=== PATIENT | female | born 1965 | race Caucasian/White ===

== ENCOUNTER 2022-01-14 13:41 | Emergency (ER) | payer OTHER, SELFPAY ==
--- NOTE | ~2022-01-14 | CT_ITS ---
EXAMINATION: CT HEAD WITHOUT CONTRAST CLINICAL INFORMATION: Altered mental status COMPARISON: None TECHNIQUE: Contiguous axial imaging was performed from the skull base to vertex without intravenous administration of contrast. This CT examination was performed using dose optimization techniques as appropriate, variously including the following: *Automated exposure control *Adjustment of mA and/or kV according to patient size (this includes techniques or standardized protocols for targeted exams where dose is matched to indication/reason for exam; i.e. extremities or head) *Use of iterative reconstruction technique DLP: 558 mGy-cm FINDINGS: There is no evidence of acute intracranial hemorrhage or territorial infarction. No abnormal mass effect or midline shift is seen. Fish to white matter differentiation is well preserved. No extra-axial fluid collections are identified. The ventricles are normal in size. There is no abnormal attenuation within the brain parenchyma. The osseous structures and soft tissues are normal. The mastoid air cells and visualized portions of the paranasal sinuses are well aerated. CT/CT head/brain wo con IMPRESSION: No acute intracranial pathology.
[2022-01-14 13:49] VITALS: BP 134/78; PULSE 86; RESP 17; TEMP 36.7; O2SAT 100; BMI 17.6
--- NOTE | 2022-01-14 13:55 | ECG_ITS ---
Test Reason : AMS Blood Pressure : / mmHG Vent. Rate : 072 BPM Atrial Rate : 072 BPM P-R Int : 124 ms QRS Dur : 100 ms QT Int : 400 ms P-R-T Axes : 076 046 053 degrees QTc Int : 438 ms Normal sinus rhythm Normal ECG No previous ECGs available Referred By: Purnima Craig Electronically Signed By:STEPHIE BENNETT MD
[2022-01-14 14:03] LABS: Glucose, Whole Blood 86 mg/dL (60-115)
--- NOTE | 2022-01-14 14:06 | ED_ITS ---
HPI - Altered Mental Status General Chief Complaint: Altered Mental Status Stated Complaint: confused unable to remember Time Seen by Provider: 01/14/22 13:49 Source: patient and family Mode of arrival: ambulatory Limitations: no limitations History of Present Illness HPI narrative: Patient comes emergency room for altered mental status. According to the patient's , the patient went to the gym, seems that everything went fine until she returned hand. According to the family, the patient kept asking why she was wearing gym clothes, patient was confused to date. No focal deficits. Patient speaks in full sentences, she knows where she is, clear speech. When patient is asked what is the last thing she remembers, patient says ?I do not know . When she is asked what she rembers from yesterday, she says i don't know . Patient is ask what is the last thing she remembers, patient keeps answering ?I do not know? otherwise, patient is able to answer all other questions, recognizes her family. Denies any pain anywhere Related Data Allergies Allergy/AdvReac Type Severity Reaction Status Date / Time Penicillins Allergy Intermediate Rash Verified 01/14/22 13:55 salicylic acid Allergy Intermediate Rash Verified 01/14/22 13:55 [From P and S (salicylic acid)] Review of Systems Review of Systems: Constitutional : No Weight loss, No Fever, No Chills, No Night Sweats, No Fatigue, No Malaise ENT/Mouth : No Hearing loss, No Ear Pain, No Nasal Congestion, No Sinus Pain, No Hoarseness, No sore throat, No Rhinorrhea, No Swallowing Difficulty Eyes: No Eye Pain, No Swelling, No Redness, No Foreign Body, No Discharge, No Vision Changes Cardiovascular : No Chest Pain, No SOB, No Dyspnea on Exertion, No Orthopnea, No Edema, No Palpitations Respiratory : No Cough, No Sputum, No Wheezing, No Smoke Exposure, No Dyspnea Gastrointestinal : No Nausea, No Vomiting, No Diarrhea, No Constipation, No abdominal Pain, No Hematochezia, No Melena Genitourinary : no irregular bleeding, No Dysuria, No Urinary Frequency, No Hematuria, No Urinary Incontinence, No Urgency, No Flank Pain, No Urinary Flow Changes, No Hesitancy Musculoskeletal : No joint pain, No Myalgias, No Joint Swelling Skin : No Skin Lesions, No rash Neuro : No Weakness, No Numbness, No Paresthesias, No Loss of Consciousness, No Dizziness, No Headache Psych : Patient denies history of depression or anxiety, states that she takes sertraline for TMJ Heme/Lymph: No Bruising, No Bleeding,No Lymphadenopathy Endocrine : No Polyuria, No Polydipsia, No Temperature Intolerance [facility] Past Medical History Medical History (Updated 01/14/22 @ 16:11 by Purnima Craig MD) Hypertension TMJ arthralgia Social History Social History Advance Directives: No Advance Directives Information Provided: Yes Physical Exam ED Vital Signs: Vital Signs - 24 hr 01/14/22 13:49 01/14/22 15:23 Temperature 98.1 F 98.3 F Pulse Rate 86 94 Respiratory Rate 17 14 Blood Pressure 134/78 120/68 Pulse Oximetry 100 100 BMI result Body Mass Index 17.6 Const Other: Appearance: Alert. Oriented X3. No acute distress. Eyes: Pupils equal, round and reactive to light. ENT: Pharynx normal. Neck: Normal inspection. Neck supple. No lymph nodes noted. No crepitus CVS: Normal heart rate and rhythm. Pulses normal. Normal S1 and S2 Respiratory: No respiratory distress. Breath sounds normal. No Wheezing. No rales Abdomen: Soft and nontender. No rigidity. No distention. Skin: Skin warm and dry. Normal skin color. Normal skin turgor. Extremities: No lower extremity edema. No Lacerations. No Rash Neuro: Oriented X 3. No motor deficit. No sensory deficit. Moving all extermities. No slurred speech. Cranial nerves 2-12 grossly intact Psych: Alert, oriented, able to have a normal conversation. However, when patient is asked what she remembers from today, or yesterday, the day before, or ever, her only answer is ?I do not know NIH Stroke Scale Level of Consciousness: Alert Level of Consciousness Questions: Answers both questions correctly Level of Consciousness Commands: Performs both tasks correctly Best Gaze: Normal Visual: No visual loss Facial Palsy: Normal Motor Arm (Right): No drift Motor Arm (Left): No drift Motor Leg (Right): No drift Motor Leg (Left): No drift Limb Ataxia: Absent Sensory: Normal Best Language: No aphasia Dysarthia: Normal Extinction and Inattention: No abnormality Score: 0 Course Course Course Narrative: I discussed the labs and imaging with the patient, her and her son who are at bedside. At this time, it is possible that patient may have amnesia. Patient tested positive for benzodiazepines. Patient only takes amitriptyline and sertraline per her family. I discussed the patient's medications with pharmacy, it is possible that sertraline, can make a urine toxicology turn a falsely positive for benzos [facility] consult pending Physician observation started at 16:12 Sign-out given to Dr. Juarez [facility] - Altered Mental Status Lab Data Result diagrams: 01/14/22 14:17 01/14/22 14:17 Labs: Lab Results 01/14/22 01/14/22 01/14/22 Range/Units 14:00 14:17 14:17 WBC 7.4 (4.8-10.8) X10*3/uL RBC 4.61 (4.20-5.50) X10*6/uL Hgb 14.1 (12.0-16.0) g/dl Hct 43.0 (37.0-47.0) % MCV 93.3 (80.0-98.0) fL MCH 30.6 (27.0-33.0) pg MCHC 32.8 (31.0-35.0) g/dl RDW 13.5 (11.0-16.0) % Plt Count 187 (160-400) X10*3/uL MPV 9.7 (9.4-12.3) fL Immature Gran % (Auto) 0.3 (0.0-0.4) % Neut % (Auto) 75.5 H (45-73) % Lymph % (Auto) 17.6 L (20-40) % Barron % (Auto) 5.2 (2-11) % Eos % (Auto) 0.9 (0-4) % Baso % (Auto) 0.5 (0-2) % Lymph # (Auto) 1.3 (1.2-4.9) X10*3/uL Barron # (Auto) 0.4 (0.1-1.2) X10*3/uL Eos # (Auto) 0.1 (0.0-0.4) X10*3/uL Baso # (Auto) 0.0 (0.0-0.2) X10*3/uL Abs Immat Gran (auto) 0.02 (0.00-0.03) X10*3/uL Absolute Neuts (auto) 5.6 (2.0-8.3) x10*3/uL Absolute Nucleated RBC 0.000 (0.0-0.012) X10*3/uL Nucleated RBC % (auto) 0.0 (0.0-0.2) /100WBC Sodium 138 (135-145) mmol/L Potassium 3.8 (3.3-5.1) mmol/L Chloride 103 (96-108) mmol/L Carbon Dioxide 26 (22-29) mmol/L Anion Gap 13 (12-20) BUN 18 H (9-16) mg/dL Creatinine 0.77 (0.5-1.4) mg/dL Estim Creat Clear Calc 63.5 Estimated GFR > 60 POC Glucose 86 (60-115) mg/dL Random Glucose 94 (60-115) mg/dL Lactic Acid (0.5-2.0) mmol/L Calcium 10.0 (8.4-10.2) mg/dL Magnesium 2.4 (1.6-2.6) mg/dL Total Bilirubin 0.5 (0.0-1.0) mg/dL Direct Bilirubin 0.2 (0.0-0.5) mg/dL AST 29 (5-31) U/L ALT 14 (0-31) U/L Alkaline Phosphatase 57 (39-117) U/L Ammonia (13-55) umol/L Total Creatine Kinase 138 (26-140) U/L Troponin I High Sens (<3.5-17.0) ng/L Total Protein 8.0 (6.5-8.0) g/dL Albumin 4.8 (3.5-5.0) g/dL TSH (0.32-4.0) uIU/mL Urine Color Urine Appearance Urine pH (5.0-8.0) Ur Specific [place] (1.005-1.025) Urine Protein (NEG-TRACE) MG/DL Urine Glucose (UA) (NEG) MG/DL Urine Ketones (NEG) MG/DL Urine Blood (NEG) Urine Nitrite (NEG) Ur Leukocyte Esterase (NEG) Urine Opiates Screen (Not Detect) Urine Fentanyl Screen (Not Detect) Ur Barbiturates Screen (Not Detect) Ur Phencyclidine Scrn (Not Detect) Ur Amphetamines Screen (Not Detect) U Benzodiazepines Scrn (Not Detect) Urine Cocaine Screen (Not Detect) U Marijuana (THC) Screen (Not Detect) 01/14/22 01/14/22 01/14/22 Range/Units 14:17 14:17 14:17 WBC (4.8-10.8) X10*3/uL RBC (4.20-5.50) X10*6/uL Hgb (12.0-16.0) g/dl Hct (37.0-47.0) % MCV (80.0-98.0) fL MCH (27.0-33.0) pg MCHC (31.0-35.0) g/dl RDW (11.0-16.0) % Plt Count (160-400) X10*3/uL MPV (9.4-12.3) fL Immature Gran % (Auto) (0.0-0.4) % Neut % (Auto) (45-73) % Lymph % (Auto) (20-40) % Barron % (Auto) (2-11) % Eos % (Auto) (0-4) % Baso % (Auto) (0-2) % Lymph # (Auto) (1.2-4.9) X10*3/uL Barron # (Auto) (0.1-1.2) X10*3/uL Eos # (Auto) (0.0-0.4) X10*3/uL Baso # (Auto) (0.0-0.2) X10*3/uL Abs Immat Gran (auto) (0.00-0.03) X10*3/uL Absolute Neuts (auto) (2.0-8.3) x10*3/uL Absolute Nucleated RBC (0.0-0.012) X10*3/uL Nucleated RBC % (auto) (0.0-0.2) /100WBC Sodium (135-145) mmol/L Potassium (3.3-5.1) mmol/L Chloride (96-108) mmol/L Carbon Dioxide (22-29) mmol/L Anion Gap (12-20) BUN (9-16) mg/dL Creatinine (0.5-1.4) mg/dL Estim Creat Clear Calc Estimated GFR POC Glucose (60-115) mg/dL Random Glucose (60-115) mg/dL Lactic Acid 1.0 (0.5-2.0) mmol/L Calcium (8.4-10.2) mg/dL Magnesium (1.6-2.6) mg/dL Total Bilirubin (0.0-1.0) mg/dL Direct Bilirubin (0.0-0.5) mg/dL AST (5-31) U/L ALT (0-31) U/L Alkaline Phosphatase (39-117) U/L Ammonia 24 (13-55) umol/L Total Creatine Kinase (26-140) U/L Troponin I High Sens < 3.5 (<3.5-17.0) ng/L Total Protein (6.5-8.0) g/dL Albumin (3.5-5.0) g/dL TSH (0.32-4.0) uIU/mL Urine Color Urine Appearance Urine pH (5.0-8.0) Ur Specific [place] (1.005-1.025) Urine Protein (NEG-TRACE) MG/DL Urine Glucose (UA) (NEG) MG/DL Urine Ketones (NEG) MG/DL Urine Blood (NEG) Urine Nitrite (NEG) Ur Leukocyte Esterase (NEG) Urine Opiates Screen (Not Detect) Urine Fentanyl Screen (Not Detect) Ur Barbiturates Screen (Not Detect) Ur Phencyclidine Scrn (Not Detect) Ur Amphetamines Screen (Not Detect) U Benzodiazepines Scrn (Not Detect) Urine Cocaine Screen (Not Detect) U Marijuana (THC) Screen (Not Detect) 01/14/22 01/14/22 01/14/22 Range/Units 14:17 15:24 15:24 WBC (4.8-10.8) X10*3/uL RBC (4.20-5.50) X10*6/uL Hgb (12.0-16.0) g/dl Hct (37.0-47.0) % MCV (80.0-98.0) fL MCH (27.0-33.0) pg MCHC (31.0-35.0) g/dl RDW (11.0-16.0) % Plt Count (160-400) X10*3/uL MPV (9.4-12.3) fL Immature Gran % (Auto) (0.0-0.4) % Neut % (Auto) (45-73) % Lymph % (Auto) (20-40) % Barron % (Auto) (2-11) % Eos % (Auto) (0-4) % Baso % (Auto) (0-2) % Lymph # (Auto) (1.2-4.9) X10*3/uL Barron # (Auto) (0.1-1.2) X10*3/uL Eos # (Auto) (0.0-0.4) X10*3/uL Baso # (Auto) (0.0-0.2) X10*3/uL Abs Immat Gran (auto) (0.00-0.03) X10*3/uL Absolute Neuts (auto) (2.0-8.3) x10*3/uL Absolute Nucleated RBC (0.0-0.012) X10*3/uL Nucleated RBC % (auto) (0.0-0.2) /100WBC Sodium (135-145) mmol/L Potassium (3.3-5.1) mmol/L Chloride (96-108) mmol/L Carbon Dioxide (22-29) mmol/L Anion Gap (12-20) BUN (9-16) mg/dL Creatinine (0.5-1.4) mg/dL Estim Creat Clear Calc Estimated GFR POC Glucose (60-115) mg/dL Random Glucose (60-115) mg/dL Lactic Acid (0.5-2.0) mmol/L Calcium (8.4-10.2) mg/dL Magnesium (1.6-2.6) mg/dL Total Bilirubin (0.0-1.0) mg/dL Direct Bilirubin (0.0-0.5) mg/dL AST (5-31) U/L ALT (0-31) U/L Alkaline Phosphatase (39-117) U/L Ammonia (13-55) umol/L Total Creatine Kinase (26-140) U/L Troponin I High Sens (<3.5-17.0) ng/L Total Protein (6.5-8.0) g/dL Albumin (3.5-5.0) g/dL TSH 0.73 (0.32-4.0) uIU/mL Urine Color YELLOW Urine Appearance CLEAR Urine pH 7.5 (5.0-8.0) Ur Specific [place] 1.020 (1.005-1.025) Urine Protein NEG (NEG-TRACE) MG/DL Urine Glucose (UA) NEG (NEG) MG/DL Urine Ketones 15 (NEG) MG/DL Urine Blood NEG (NEG) Urine Nitrite NEG (NEG) Ur Leukocyte Esterase NEG (NEG) Urine Opiates Screen Not Detected (Not Detect) Urine Fentanyl Screen Not Detected (Not Detect) Ur Barbiturates Screen Not Detected (Not Detect) Ur Phencyclidine Scrn Not Detected (Not Detect) Ur Amphetamines Screen Not Detected (Not Detect) U Benzodiazepines Scrn POSITIVE H (Not Detect) Urine Cocaine Screen Not Detected (Not Detect) U Marijuana (THC) Screen Not Detected (Not Detect) Discharge Plan Discharge Clinical Impression: Amnesia Patient Disposition: Still a Patient
[2022-01-14 14:24] LABS: MANUAL DIFF FLAG NO
[2022-01-14 14:37] LABS: Basophils Percent Auto 0.5 % (0-2); Eosinophils Absolute Auto 0.1 X10*3/uL (0.0-0.4); Eosinophils Percent Auto 0.9 % (0-4); Hemoglobin 14.1 g/dl (12.0-16.0); Imm Gran Abs Auto 0.02 X10*3/uL (0.00-0.03); Imm Gran Pct Auto 0.3 % (0.0-0.4); Lymphocytes Absolute Auto 1.3 X10*3/uL (1.2-4.9); Lymphocytes Percent Auto 17.6 % (20-40); Mean Corpuscular HGB Conc 32.8 g/dl (31.0-35.0); Mean Corpuscular Hemoglobin 30.6 pg (27.0-33.0); Mean Corpuscular Volume 93.3 fL (80.0-98.0); Mean Platelet Volume 9.7 fL (9.4-12.3); Monocytes Absolute Auto 0.4 X10*3/uL (0.1-1.2); Monocytes Percent Auto 5.2 % (2-11); Neutrophils Absolute Auto 5.6 x10*3/uL (2.0-8.3); Neutrophils Percent Auto 75.5 % (45-73); Platelet Count 187 X10*3/uL (160-400); Red Blood Count 4.61 X10*6/uL (4.20-5.50); Red Cell Distribution Width 13.5 % (11.0-16.0); White Blood Count 7.4 X10*3/uL (4.8-10.8)
[2022-01-14 14:42] LABS: Alanine Aminotransferase 14 U/L (0-31); Albumin Level 4.8 g/dL (3.5-5.0); Alkaline Phosphatase 57 U/L (39-117); Anion Gap 13 (12-20); Aspartate Amino Transferase 29 U/L (5-31); Bilirubin Direct 0.2 mg/dL (0.0-0.5); Bilirubin Total 0.5 mg/dL (0.0-1.0); Blood Urea Nitrogen 18 mg/dL (9-16); Carbon Dioxide 26 mmol/L (22-29); Chloride 103 mmol/L (96-108); Creatinine Clr Calc Pharmacy 63.5; Estimated Glomerular Filt Rate > 60; Glucose Random 94 mg/dL (60-115); Magnesium 2.4 mg/dL (1.6-2.6); Potassium 3.8 mmol/L (3.3-5.1); Sodium 138 mmol/L (135-145)
[2022-01-14 14:44] LABS: Troponin-I High Sensitivity < 3.5 ng/L (<3.5-17.0)
[2022-01-14 14:45] LABS: Ammonia 24 umol/L (13-55)
[2022-01-14 14:59] LABS: TSH reflex Free T4 0.73 uIU/mL (0.32-4.0)
[2022-01-14 15:23] VITALS: BP 120/68; PULSE 94; RESP 14; TEMP 36.8; O2SAT 100
[2022-01-14 15:29] LABS: Appearance Urine CLEAR; Color Urine YELLOW; Glucose Urine UA NEG (NEG); Leukocyte Esterase Urine NEG (NEG); Nitrite Urine NEG (NEG); PH 7.5 (5.0-8.0); Urine Blood NEG (NEG); Urine Ketones 15 MG/DL (NEG); Urine Protein NEG (NEG-TRACE)
[2022-01-14 15:44] LABS: Amphetamine Screen Urine Not Detected (Not Detect); Barbiturates, Urine Not Detected (Not Detect); Benzodiazepines Screen Urine POSITIVE (Not Detect); Cannabinoid Screen Urine Not Detected (Not Detect); Cocaine Screen Urine Not Detected (Not Detect); Fentanyl, urine Not Detected (Not Detect); Opiate Screen Urine Not Detected (Not Detect); Phencyclidine Screen Urine Not Detected (Not Detect)
[2022-01-14 18:27] LABS: Ethanol < 10 mg/dL
--- NOTE | 2022-01-14 19:57 | MHC.CARE ---
CARE team support requested by ED staff for a 56 year old , white, Cymro speaking, cisgender female who was brought to the ED by her and son for assessment of new onset of short term memory loss/amnesia-like symptoms that started this morning. Pt's son reported that she had been acting oddly after returning home from the gym. She was asking why she was wearing her gym clothes and wasn't able to remember going to the gym, she was starting tasks and forgetting that she had done so, checking on the car repeatedly without having any recollection of doing so a few minutes before, and wasn't able to remember any specific details of things from the night before through to this afternoon after arriving to the ED. On arrival to the ED the pt was alert and oriented to person and place but not situation, repeatedly asking why she was brought to the hospital, and responding with I don't know to questions regarding tasks and activities that she had done in the past 12 hours. Her medical labs were unremarkable and her toxicology screen was positive for benzodiazepines, which she has no recent or active prescriptions for. CARE team met with pt to assess her mental status and gather information re: her past and current psychiatric symptoms, substance use, trauma, and family history. Pt was seen in room 4 of the main ED. She was alert in oriented in all spheres and appeared to be more cognizant of why she was in the hospital without being prompted with the information. She was dressed in hospital attire, hygiene and grooming were within normal limits, speech was slow with even tone and rhythm, and eye contact was appropriate. Her mood was dysthymic with congruent affect and her overall demeanor was calm and subdued. She presented with reasonably expected anxiety and concern for what has happened to her however she did not appear to be outwardly distressed. Her thought process was linear and she did not appear to be responding to internal stimuli nor did she demonstrate any signs or symptoms of acute psychosis. She endorsed a history of anxiety and depression symptoms and shared that she started working with a therapist and psychiatrist through telehealth a year ago (her reported that it was closer to the beginning of the covid-19 pandemic in mid-2019) and was started on the medications sertraline and amitriptyline. She reported a remote history of suicidal thoughts (>10 years ago) but denied self harm and suicide attempts. She denied current SI/HI/AVH. She denied substance use. She reported that she has been taking her medications as prescribed and attending telehealth appointments with her providers. With the pt's permission, the CARE team met with pt's and 19 year old son to discuss recent behavior, habits, and what had happened earlier today prompting her to be brought to the hospital for evaluation. 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 He shared that she has been struggling since the beginning of the pandemic and has seemed more stressed lately, stating that she works the hardest out of everyone in their household and has been easily overwhelmed. He shared that she typically has a decently sized glass of wine with dinner every night, and both her and their son remarked that she is forgetful when she drinks but that she has never had memory loss. The pt's had her prescription bottles for the sertraline and amitriptyline. The date filled was compared to the number of pills remaining in the bottle, which was suggestive of missed dosages of both medications. Pt's son reported that there is an old prescription of klonopin in her closet which he speculated that she could have taken, however when she was prescribed it 10 years ago that she was reluctant to take them at that time. CARE team discussed with the pt's and son their comfort level with potentially taking the pt home with them tonight. They both expressed that they have concerns for her safety and further episodes of memory loss, and it was agreed upon that pt should remain in the ED overnight for observation and re-assess her mental status in the morning. ED attending physician Houston Juarez MD is in agreement with plan of care. CARE team contacted hospital instrument and controls technician psychiatry Tegan Cope NP to review the case. She reported that the short term memory loss and confusion is likely caused by the combination of alcohol use with a benzodiazepine and that her mental status may take another day or so to fully clear up. CARE team met with the pt and her family to update them re: the consultation with psychiatry. Upon entering the room the family informed this copywriter that they had just realized that the amitriptyline that she is taking is a combination medication of both librium and amitriptyline, thus providing rationale for the positive tox screen for benzodiazepines despite the pt denying use of such. Per Dr. Juarez, this specific prescription medication is newer and neither the family nor the pt may have been aware of the change. CARE team strongly recommended that the pt stop drinking while taking the medication to avoid possible future episodes of confusion and memory loss. Plan is still for pt to stay in the ED overnight and re-assess in the AM.
[2022-01-14 23:53] VITALS: BP 97/55; PULSE 71; RESP 17; O2SAT 97
--- NOTE | 2022-01-15 00:30 | PC.NURSE ---
PT AND REQUESTED D/C AT THIS TIME. PT HAS RETURNED TO BASELINE PER . PT IS A/O X 3 SPEAKS IN FULL CLEAR SENTENCES AND APPEARS MUCH MORE ORIENTATED THAN SHE PREVIOUSLY DISPLAYED. PT DENIES SI/HI WILL BE STAYING WITH FAMILY AT HOME, AND HAS INFORMATION TO FOLLOW UP WITH CARE TEAM IN THE MORNING. THIS RN SPOKE W/ WHO WAS COMFORTABLE W/ D/C HOME W/. THIS RN CALLED AND SPOKE W/CHELA FROM CARE TEAM WHO WILL ALSO F/U W/PT IN THE MORNING.
--- NOTE | 2022-01-15 10:10 | MHC.CARE ---
CARE Team social work internet assessor did follow-up call with pt. Pt. reported that she feels okay and stated that she wants to settle in and process what has happened. She also stated that she has a supportive who is helping her throughout the day. The pt. has a therapist and will be reaching out for further support. CARE Team internet assessor informed pt. that she may call CARE Team for further assistance with community supports if need be.
== END 2022-01-15 00:36 | disposition home or self-care (01) ==
PROVIDERS: Emergency Medicine; Emergency Provider Emergency Medicine Emergency Medical Services; PCP Nurse Practitioner Primary Care
DX: R41.3 Other amnesia (principal); Z79.899 Other long term (current) drug therapy
CPT/HCPCS: 36415; 70450; 80048; 80076; 80307; 81003; 82077; 82140; 82550; 82947; 83605; 83735; 84443; 84484; 85025; 93005; 99284